=== PATIENT | female | born 1950 | race American Indian/Alaskan Native ===

== ENCOUNTER 2016-10-31 08:50 | Outpatient (CLI) | payer MEDICARE, OTHER ==
[2016-10-31] MEDS ORDERED: NACL ONE (09:52)
[2016-10-31 10:14] LABS: Blood Urea Nitrogen 18 mg/dL (7-17)
--- NOTE | 2016-11-03 09:30 | Cat Scan Report ---
CTA NECK: HISTORY: Occlusion and stenosis of bilateral carotid arteries. TECHNIQUE: Helical CT following IV contrast. Sagittal and coronal reformatted images. 3D volume rendering technique. Stenosis was calculated using NASCET criteria. FINDINGS: The visualized aortic arch is widely patent with less than 10% stenosis. A bovine arch is noted. The innominate artery and bilateral subclavian arteries are patent with less than 20% stenosis. Mild focal calcified plaques are noted at the origin of the left subclavian artery. Within the right carotid system, there is moderate partially calcified plaque in the distal carotid bulb and proximal right ICA with stenosis measuring 52%. The remainder of the right carotid system is widely patent. Within the left carotid system, there is moderate partially calcified plaque in the distal carotid bulb and proximal left ICA with stenosis measuring 70% or greater. The remainder of the left carotid system is widely patent. The bilateral vertebral arteries are widely patent with less than 10% stenosis. The left vertebral artery is dominant. IMPRESSION: Moderate to severe partially calcified plaques at both carotid bifurcations. 52% stenosis in the proximal right ICA. 70% or greater stenosis in the proximal left ICA. Consider correlation with carotid Doppler ultrasound.
== END 2016-10-31 08:51 | disposition home or self-care (01) ==
LOC: CT 08:50
PROVIDERS: ATTEND Surgery Vascular Surgery
DX: I65.23 Occlusion and stenosis of bilateral carotid arteries (principal)
CPT/HCPCS: 36415; 70498; 82565; 84520; Q9967